=== PATIENT | female | born 1990 | race Hispanic/Latino ===

== ENCOUNTER 2018-02-20 01:33 | Emergency (ER) | payer OTHER, MEDICARE ==
[~2018-02-20] VITALS: Ht 170.2 cm; Wt 172.5 kg
[~2018-02-20 01:33] MED LIST: Colace PO; FLEXERIL10 MG PO; FLEXERIL5 MG PO; IBUPROFEN200 M1 PO; MEDROL DOSEPAK4 MG PO; MIRENA52 MG IY; MOBIC7.5 MG PO; MOTRIN600 MG PO; Motrin PO; NORCO 5/3251 TABLET PO; PEN-VEE K,VEET500 MG PO; PERCOCET 5/31 TABLET PO; PRENATAL1 EACH PO; Percocet 5/325,Endoc PO; TYLENOL EXTRA500 MG PO; VALIUM2 MG PO; VALIUM5 MG PO
[2018-02-20 02:45] LABS: APPEARANCE SL.HAZY ((CLEAR)); BILIRUBIN NEGATIVE; BLOOD MODERATE; COLOR YELLOW ((YELLOW)); GLUCOSE (STRIP) NEGATIVE; KETONES NEGATIVE; LEUKOCYTES SMALL; NITRITE NEGATIVE; PROTEIN (STRIP) 30; SPECIFIC GRAVITY 1.035 (1.000-1.030)
[2018-02-20 02:57] LABS: BACTERIA RARE /HPF; EPITHELIAL CELLS 1+ /HPF; MUCUS 1+ /LPF; RED BLOOD CELLS 20-30 /HPF (0-5); UCUL ADDED? YES; WHITE BLOOD CELLS 15-20 /HPF (0-5)
[2018-02-20 03:14] LABS: SOURCE URINE
[2018-02-20] MEDS ORDERED: CIPRO500 MG PO (03:24)
[2018-02-20 04:00] VITALS: BP 108/68
[2018-02-21 12:42] LABS: CHLAMYDIA TRACHOMATIS NEGATIVE; NEISSERIA GONORRHOEAE NEGATIVE
== END 2018-02-20 04:02 | disposition home or self-care (01) ==
LOC: EME 01:33
PROVIDERS: Emergency Medicine
DX: F32.9 Major depressive disorder, single episode, unspecified (principal); A59.9 Trichomoniasis, unspecified; N39.0 Urinary tract infection, site not specified
CPT/HCPCS: 81003; 81025; 87086; 87210; 87491; 87591; 99281; 99284; J0696